=== PATIENT | female | born 1985 | race Caucasian/White ===

== ENCOUNTER 2016-04-20 21:51 | Emergency (ER) | payer OTHER ==
[~2016-04-20] VITALS: Ht 157.5 cm; Wt 63.5 kg
[2016-04-20 21:54] VITALS: BP 122/78
[2016-04-20] MEDS ORDERED: NASONEX17 GM NASB (22:23)
[2016-04-20] MEDS ORDERED: AMOXICILLIN500 M3 PO (22:23)
--- NOTE | 2016-04-20 22:25 | ED INFLUENZA/URI COMPLAINT ---
History of Present Illness General Chief Complaint: General Adult Stated Complaint: " CAN'T BREATH OUT MY NOSE SINCE THIS MORNING" Source: patient Exam Limitations: no limitations Vital Signs & Intake/Output Vital Signs & Intake/Output Vital Signs Date Time Temp Pulse Resp B/P Pulse O2 O2 Flow FiO2 Ox Delivery Rate 04/204 Room Air 04/20 2153 97.6 83 18 122/78 97 Room Air ED Intake and Output 04/21 0000 04/20 1200 Intake Total Output Total Balance Patient 140 lb Weight Allergies Coded Allergies: No Known Drug Allergies (04/20/16) Reconcile Medications Amoxicillin 500 MG TABLET 1 TAB PO TID sinusitis Mometasone Furoate (Nasonex) 50 MCG SPRAY.PUMP 2 SPRAY NASB DAILY congestion Triage Note: PT TO ED C/O "I CAN'T BREATHE OUT OF MY NOSE" SINCE THIS MORNING. HAD BEEN USING AFRIN TYPE NASAL SPRAY FOR 2 WEEKS, STOPPED USING TODAY Triage Nurses Notes Reviewed? yes Onset: Abrupt Duration: day(s):, constant, getting worse Timing: recent history Severity: moderate, severe No Modifying Factors: none : No Patient currently breastfeeds: No HPI: 30-year-old female comes into emergency room with complaints of nasal congestion , runny nose, coughing. Patient reports that she's been using nasal decongestent nose spray for the last 2 weeks and her symptoms have gotten worse. Denies any fever. Patient reports she's having a lot of difficulty breathing out of her nose and it feels completely blocked up. Denies any other associated symptoms. (KAVON CHARLES) Past History Travel History Traveled to [place] past 21 day No Medical History Any Pertinent Medical History? see below for history Neurological: NONE EENT: NONE Cardiovascular: NONE Respiratory: NONE Gastrointestinal: NONE Hepatic: NONE Renal: NONE Musculoskeletal: NONE Surgical History Surgical History: non-contributory Psychosocial History What is your primary language Kyrgyz Tobacco Use: Current Daily Use Daily Tobacco Use Amount/Type: => 5 Cigarettes daily ETOH Use: occasional use Illicit Drug Use: denies illicit drug use Family History Hx Contributory? No (KAVON CHARLES) Review of Systems Review of Systems Constitutional: Reports: see HPI. EENTM: Reports: see HPI. Respiratory: Reports: no symptoms. Cardiovascular: Reports: no symptoms. GI: Reports: no symptoms. Genitourinary: Reports: no symptoms. Musculoskeletal: Reports: no symptoms. Skin: Reports: no symptoms. Neurological/Psychological: Reports: no symptoms. Hematologic/Endocrine: Reports: no symptoms. Immunologic/Allergic: Reports: no symptoms. All Other Systems: Reviewed and Negative (KAVON CHARLES) Physical Exam Physical Exam General Appearance: well developed/nourished, no apparent distress, alert Head: atraumatic Eyes: Bilateral: normal appearance. Ears, Nose, Throat: normal ENT inspection, pharynx normal, nasal congestion, nasal drainage Neck: normal inspection, supple, full range of motion Respiratory: normal breath sounds, no respiratory distress Cardiovascular: regular rate/rhythm Back: normal inspection Extremities: normal inspection, normal range of motion Neurologic/Psych: awake, alert, oriented x 3, normal gait, normal mood/affect Skin: intact, normal color Core Measures Severe Sepsis Present: No Septic Shock Present: No (KAVON CHARLES) Progress Differential Diagnosis: influenza, meningitis, neutropenia, otitis, pneumonia, pharyngitis, sinusitis Plan of Care: 04/21/2016 12:01:05 PM Patient clinically looks well. Nontoxic-appearing. In no apparent distress. Patient was told to discontinue the nasal decongestant. Symptoms most consistent with rebound congestion from using decongestant to long as well as sinusitis. Follow-up with primary. Return if any other concerns. Initial ED EKG: none (KAVON CHARLES) Departure Departure Disposition: HOME OR SELF CARE Condition: Stable Clinical Impression Primary Impression: Sinusitis Referrals: PATIENT HAS NO PRIMARY CARE DR (PCP/Family) HANNAH ESCOBEDO MD Additional Instructions: Take Nasonex and amoxicillin as prescribed. Take Mucinex D [id number]. Rest. Drinking fluids. Return if any other concerns worsening symptoms. Please go over all results of today's visit with your primary care doctor. Contact your primary care doctor to let them know you were here in the emergency room. There may be nonspecific findings which may not be related to your visit today here in the emergency room but may require further evaluation and chronic monitoring by your primary care doctor. If you had a laceration today the chance of foreign body always remains. You should follow-up with your primary care doctor for recheck in 3-5 days for a wound check. If you had an x-ray done there is a chance that a fracture could have been missed on initial read and you should follow-up with your primary care doctor for repeat x-rays if symptoms persist. If your blood pressure was elevated here in the emergency room please have rechecked by her primary care doctor within the next 48 hours by your primary care doctor. If you were prescribed a narcotic here in the emergency room or any type of controlled substances you're not allowed to drive while taking this medication or operate any type of heavy machinery. Narcotics can make you feel lightheaded dizziness nausea and can cause constipation. You may need to berry picker a stool softener. Thank you for choosing [facility] emergency room. Please return to the emergency room immediately if you have any other concerns worsening of symptoms. Departure Forms: Customer Survey General Discharge Information Prescriptions: Current Visit Scripts Mometasone Furoate (Nasonex) 2 SPRAY NASB DAILY #1 INHAL Amoxicillin 1 TAB PO TID #30 TAB (KAVON CHARLES) PA/SUSTAINABILITY DIRECTOR Co-Sign Statement Statement: ED Attending supervision documentation- [] I saw and evaluated the patient. I have also reviewed all the pertinent lab results and diagnostic results. I agree with the findings and the plan of care as documented in the PA's/SUSTAINABILITY DIRECTOR's documentation. [X] I have reviewed the ED Record and agree with the PA's/SUSTAINABILITY DIRECTOR's documentation. [] Additions or exceptions (if any) to the PAs/SUSTAINABILITY DIRECTOR's note and plan are summarized below: [] (NORA VANN,PAXTON)
== END 2016-04-20 22:32 ==
LOC: ERH 21:51
DX: J32.9 Chronic sinusitis, unspecified (principal); F17.210 Nicotine dependence, cigarettes, uncomplicated